=== PATIENT | male | born 1950 | race Caucasian/White ===

== ENCOUNTER 2019-09-20 17:48 | Observation (INO) ==
[2019-09-20] MEDS ORDERED: 0.9 % Sodium Chloride 1,000 ML IVC ONE (17:58)
[2019-09-20 18:26] LABS: Bilirubin,Urine Negative (Negative); Blood,Urine Negative (Negative); Clarity,Urine Cloudy (Clear); Color,Urine Yellow (Yellow); Glucose,Urine (UA) Normal (Normal); Ketones,Urine Negative (Negative); Leukocyte Esterase,Urine Negative (Negative); Nitrite,Urine Negative (Negative); Protein,Urine Negative (Neg-Trace); Specific Gravity,Urine 1.022 (1.010-1.025); Urobilinogen,Urine Normal (Normal)
[2019-09-20 18:29] LABS: Bacteria,Urine None Seen per hpf (None-Few); Hyaline Casts,Urine None Seen per lpf (None-Few); RBC,Urine 0-3 per hpf (0-3); Squamous Epithelial Cell,Urine Few per lpf (None-Few); WBC,Urine 0-3 per hpf (0-3)
[2019-09-20 18:35] LABS: INR 1.1; Prothrombin Time 12.8 Seconds (9.4-12.1)
[2019-09-20 18:35] LABS: Basophils % 0.2 %; Eosinophils % 0.1 %; Hematocrit 39.8 % (37.5-50.1); Hemoglobin 13.8 g/dL (12.9-16.9); Immature Granulocytes % 0.4 % (0-4); Lymphocytes # 1.3 K/mcL (0.6-4.6); Lymphocytes % 12.3 %; Mean Corpuscular HGB Conc 34.7 g/dL (31.6-35.5); Mean Corpuscular Hemoglobin 29.9 pg (28.0-33.3); Mean Corpuscular Volume 86.3 fL (83.0-100.0); Mean Platelet Volume 12.3 fL (9.4-12.4); Monocytes # 0.5 K/mcL (0.0-1.3); Monocytes % 4.4 %; Neutrophils # 8.4 K/mcL (1.6-8.9); Platelet Count 159 K/mcL (140-400); Red Blood Count 4.61 M/mcL (4.19-5.50); Segmented Neutrophils % 82.6 %; White Blood Count 10.2 K/mcL (4.3-11.1)
[2019-09-20 18:36] LABS: Amphetamine Screen,Urine Negative ng/mL (Cutoff=1000); Barbiturate Screen,Urine Negative ng/mL (Cutoff=200); Benzodiazepines Screen,Urine Negative ng/mL (Cutoff=200); Cannabinoid Screen,Urine Positive ng/mL (Cutoff = 50); Cocaine Screen,Urine Negative ng/mL (Cutoff= 300); Opiate Screen,Urine Negative ng/mL (Cutoff=300); Phencyclidine Screen,Urine Negative ng/mL (Cutoff=25)
[2019-09-20 18:37] LABS: Activated Partial Thrombo Time 30.2 Seconds (26.0-36.0)
[2019-09-20 18:47] LABS: Alanine Aminotransferase 27 Units/L (7-52); Albumin 3.9 g/dL (3.5-5.7); Albumin/Globulin Ratio 1.7 (1.1-2.2); Alkaline Phosphatase 49 Units/L (34-104); Aspartate Amino Transferase 32 Units/L (13-39); BUN/Creatinine Ratio 11 (6-26); Bilirubin,Direct 0.1 mg/dL (0.0-0.2); Bilirubin,Indirect 0.4 mg/dL (0.0-1.0); Bilirubin,Total 0.5 mg/dL (0.3-1.0); Blood Urea Nitrogen 11 mg/dL (8-23); Calcium 9.2 mg/dL (8.6-10.3); Carbon Dioxide 18 mEq/L (23-29); Chloride 111 mEq/L (98-107); Ethanol 23 mg/dL (Less than 10); Globulin 2.3 g/dL (2.4-3.5); Glucose 115 mg/dL (70-105); Osmolality,Calculated 288 (280-300); Potassium 3.5 mEq/L (3.5-5.1); Sodium 139 mEq/L (136-145); Total Protein 6.2 g/dL (6.4-8.9); Troponin I 0.04 ng/mL (< 0.04); eGFR For African Americans > 60 (> 60); eGFR For Non-African Americans > 60 (> 60)
[2019-09-20] MEDS ORDERED: Aspirin 81 MG TAB.CHEW PO ONE (18:54)
[2019-09-20 20:23] LABS: VBG HCO3 23 mEq/L (21-27); VBG PCO2 39 mmHg (41-51); VBG PH 7.38 pH Units (7.32-7.42); VBG PO2 42 mmHg (25-50)
[2019-09-20] MEDS ORDERED: Naloxone 0.4 MG/ML INJ IVP PRN (22:21)
[2019-09-21] MEDS ORDERED: *HR* LORazepam 2 MG/ML VIAL IVP PRN ×3 (01:58)
[2019-09-21] MEDS ORDERED: levETIRAcetam 1,000 MG in 0.9 % Sodium Chloride 100 ML IVPB ONE (01:59)
[2019-09-21 04:58] LABS: VBG HCO3 25 mEq/L (21-27); VBG PCO2 45 mmHg (41-51); VBG PH 7.35 pH Units (7.32-7.42); VBG PO2 45 mmHg (25-50)
[2019-09-21 05:00] LABS: Basophils % 0.3 %; Eosinophils % 0.1 %; Hematocrit 36.7 % (37.5-50.1); Hemoglobin 12.3 g/dL (12.9-16.9); INR 1.2; Immature Granulocytes % 0.3 % (0-4); Lymphocytes # 1.7 K/mcL (0.6-4.6); Lymphocytes % 24.1 %; Mean Corpuscular HGB Conc 33.5 g/dL (31.6-35.5); Mean Corpuscular Hemoglobin 29.7 pg (28.0-33.3); Mean Corpuscular Volume 88.6 fL (83.0-100.0); Monocytes # 0.7 K/mcL (0.0-1.3); Monocytes % 9.1 %; Neutrophils # 4.7 K/mcL (1.6-8.9); Platelet Count 127 K/mcL (140-400); Prothrombin Time 13.5 Seconds (9.4-12.1); Red Blood Count 4.14 M/mcL (4.19-5.50); Red Cell Distribution Width 13.1 % (11.5-14.5); Segmented Neutrophils % 66.1 %; White Blood Count 7.1 K/mcL (4.3-11.1)
[2019-09-21 05:20] LABS: Alanine Aminotransferase 24 Units/L (7-52); Albumin 3.4 g/dL (3.5-5.7); Albumin/Globulin Ratio 1.7 (1.1-2.2); Alkaline Phosphatase 42 Units/L (34-104); Aspartate Amino Transferase 28 Units/L (13-39); BUN/Creatinine Ratio 11 (6-26); Bilirubin,Total 0.7 mg/dL (0.3-1.0); Blood Urea Nitrogen 10 mg/dL (8-23); Calcium 8.7 mg/dL (8.6-10.3); Carbon Dioxide 23 mEq/L (23-29); Chloride 112 mEq/L (98-107); Chol/HDL Ratio 5.9 (0-4.9); Cholesterol 141 mg/dL (< 200); Glucose 89 mg/dL (70-105); HDL Cholesterol 24 mg/dL (40-59); LDL Cholesterol,Calculated 100 mg/dL (0-99); Magnesium 1.8 mg/dL (1.6-2.6); Osmolality,Calculated 291 (280-300); Phosphorous 2.4 mg/dL (2.7-4.5); Potassium 3.5 mEq/L (3.5-5.1); Sodium 141 mEq/L (136-145); Total Protein 5.4 g/dL (6.4-8.9); Triglycerides 87 mg/dL (< 150); eGFR For African Americans > 60 (> 60); eGFR For Non-African Americans > 60 (> 60)
[2019-09-21] MEDS ORDERED: levETIRAcetam 250 MG TABLET PO SCH (09:00)
[2019-09-21] MEDS ORDERED: Vitamin B Complex/Vit C/Vit E 1 EACH TABLET PO SCH (09:00)
[2019-09-21 10:58] VITALS: BP 123/71
[2019-09-21] MEDS ORDERED: Thiamine (B-1) 100 MG, Folic Acid 1 MG, MVI, adult with vitamin K 10 ML in 0.9 % Sodi... IVPB SCH (18:00)
[2019-09-24] MEDS ORDERED: Thiamine (B-1) 100 MG TABLET PO SCH (09:00)
[2019-09-24] MEDS ORDERED: Folic Acid 1 MG TABLET PO SCH (09:00)
== END 2019-09-21 14:59 | disposition left against medical advice (07) ==
LOC: EMEROOARM 17:48 → 3ANU 17:48 → SUATTDRO 21:16 → 3ANU 21:20
PROVIDERS: ADMIT Family Medicine; ATTEND Internal Medicine

== ENCOUNTER 2020-06-26 19:39 | Observation (INO) ==
[2020-06-26 19:58] LABS: Basophils % 0.3 %; Eosinophils % 0.4 %; Hematocrit 45.4 % (37.5-50.1); Hemoglobin 14.8 g/dL (12.9-16.9); Immature Granulocytes % 0.3 % (0-4); Lymphocytes # 1.8 K/mcL (0.6-4.6); Lymphocytes % 20.2 %; Mean Corpuscular HGB Conc 32.6 g/dL (31.6-35.5); Mean Corpuscular Hemoglobin 28.8 pg (28.0-33.3); Mean Corpuscular Volume 88.3 fL (83.0-100.0); Monocytes # 0.8 K/mcL (0.0-1.3); Monocytes % 8.5 %; Neutrophils # 6.2 K/mcL (1.6-8.9); Platelet Count 142 K/mcL (140-400); Red Blood Count 5.14 M/mcL (4.19-5.50); Red Cell Distribution Width 13.8 % (11.5-14.5); Segmented Neutrophils % 70.3 %; White Blood Count 8.9 K/mcL (4.3-11.1)
[2020-06-26] MEDS ORDERED: Nicotine 21 MG PATCH.TD24 TD ONE (20:15)
[2020-06-26 20:19] LABS: Acetaminophen < 10 mcg/mL (10-20); BUN/Creatinine Ratio 9 (6-26); Blood Urea Nitrogen 10 mg/dL (8-23); Calcium 9.4 mg/dL (8.6-10.3); Carbon Dioxide 23 mEq/L (23-29); Chloride 104 mEq/L (98-107); Chol/HDL Ratio 4.7 (0-4.9); Cholesterol 160 mg/dL (< 200); Ethanol < 10 mg/dL (Less than 10); Glucose 89 mg/dL (70-105); HDL Cholesterol 34 mg/dL (40-59); LDL Cholesterol,Calculated 108 mg/dL (< 100); Osmolality,Calculated 283 (280-300); Potassium 3.9 mEq/L (3.5-5.1); Salicylate < 2.5 mg/dL (15.0-30.0); Sodium 137 mEq/L (136-145); Triglycerides 88 mg/dL (< 150); eGFR For African Americans > 60 (> 60); eGFR For Non-African Americans > 60 (> 60)
[2020-06-26 20:40] LABS: INR 1.1; Prothrombin Time 12.9 Seconds (9.4-12.1)
[2020-06-26 21:43] LABS: Bacteria,Urine Few per hpf (None-Few); Bilirubin,Urine Small (Negative); Blood,Urine Negative (Negative); Clarity,Urine Clear (Clear); Color,Urine Yellow (Yellow); Glucose,Urine (UA) Normal (Normal); Hyaline Casts,Urine Many per lpf (None Seen); Ketones,Urine 10 mg/dL (Negative); Leukocyte Esterase,Urine Negative (Negative); Mucus,Urine Many per lpf (None-Few); Nitrite,Urine Negative (Negative); Protein,Urine 50 mg/dL (Neg-Trace); Specific Gravity,Urine > 1.030 (1.010-1.025); Squamous Epithelial Cell,Urine Few per hpf (None-Few)
[2020-06-26 21:52] LABS: Amphetamine Screen,Urine Negative ng/mL (Cutoff=1000); Barbiturate Screen,Urine Negative ng/mL (Cutoff=200); Benzodiazepines Screen,Urine Negative ng/mL (Cutoff=200); Cannabinoid Screen,Urine Positive ng/mL (Cutoff = 50); Cocaine Screen,Urine Negative ng/mL (Cutoff= 300); Opiate Screen,Urine Negative ng/mL (Cutoff=300); Phencyclidine Screen,Urine Negative ng/mL (Cutoff=25)
[2020-06-27] MEDS ORDERED: Acetaminophen 325 MG TABLET PO ONE (00:48)
[2020-06-27] MEDS ORDERED: Naloxone 0.4 MG/ML INJ IVP PRN (02:41)
[2020-06-27] MEDS ORDERED: Ibuprofen 400 MG TABLET PO PRN (02:43)
[2020-06-27] MEDS ORDERED: *HR* OxyCODONE Immed Rel 5 MG TABLET PO PRN (02:43)
[2020-06-27] MEDS ORDERED: *HR* HYDROcodone/Acet 5/325 mg TABLET PO PRN (02:43)
[2020-06-27] MEDS: *HR* Heparin 5,000 UNIT/ML VIAL SQ SCH ×2 (05:07→17:21)
[2020-06-27 06:54] LABS: BUN/Creatinine Ratio 11 (6-26); Blood Urea Nitrogen 10 mg/dL (8-23); Calcium 9.1 mg/dL (8.6-10.3); Carbon Dioxide 27 mEq/L (23-29); Chloride 106 mEq/L (98-107); Glucose 99 mg/dL (70-105); Magnesium 1.8 mg/dL (1.6-2.6); Osmolality,Calculated 285 (280-300); Phosphorous 2.6 mg/dL (2.7-4.5); Potassium 3.2 mEq/L (3.5-5.1); Sodium 138 mEq/L (136-145); eGFR For African Americans > 60 (> 60); eGFR For Non-African Americans > 60 (> 60)
[2020-06-27] MEDS ORDERED: levETIRAcetam 500 MG/5 ML VIAL IVPB SCH (09:00)
[2020-06-27 09:10] LABS: Estimated Average Glucose 120 mg/dl
[2020-06-27] MEDS: Aspirin Enteric Coated 81 MG Tablet PO SCH (09:47)
[2020-06-27] MEDS: levETIRAcetam 250 MG TABLET PO SCH ×2 (09:50→20:41)
[2020-06-27] MEDS: Gabapentin 100 MG CAPSULE PO SCH ×3 (12:28→20:41)
[2020-06-28 04:51] LABS: BUN/Creatinine Ratio 13 (6-26); Blood Urea Nitrogen 11 mg/dL (8-23); Calcium 8.5 mg/dL (8.6-10.3); Carbon Dioxide 25 mEq/L (23-29); Chloride 106 mEq/L (98-107); Glucose 98 mg/dL (70-105); Magnesium 1.6 mg/dL (1.6-2.6); Osmolality,Calculated 281 (280-300); Phosphorous 2.6 mg/dL (2.7-4.5); Potassium 4.1 mEq/L (3.5-5.1); Sodium 136 mEq/L (136-145); eGFR For African Americans > 60 (> 60); eGFR For Non-African Americans > 60 (> 60)
[2020-06-28] MEDS: *HR* Heparin 5,000 UNIT/ML VIAL SQ SCH (05:44)
[2020-06-28] MEDS: Aspirin Enteric Coated 81 MG Tablet PO SCH (08:33)
[2020-06-28] MEDS: levETIRAcetam 250 MG TABLET PO SCH (08:33)
[2020-06-28] MEDS: Gabapentin 100 MG CAPSULE PO SCH ×2 (08:33→14:18)
[2020-06-28 12:38] VITALS: BP 126/75
== END 2020-06-28 16:52 ==
LOC: EMEROOARM 19:39 → 3BNU 19:39 → SUATTDRO 06-27 01:35 → 3BNU 06-27 02:17
PROVIDERS: ADMIT Family Medicine; ATTEND Internal Medicine

== ENCOUNTER 2020-06-28 17:00 | Inpatient (IN) ==
[2020-06-28] MEDS ORDERED: hydrOXYzine pamoate 25 MG CAPSULE PO PRN (17:15)
[2020-06-28] MEDS ORDERED: *HR* LORazepam 2 MG/ML VIAL IM PRN (17:15)
[2020-06-28] MEDS ORDERED: *HR* LORazepam 1 MG TABLET PO PRN (17:15)
[2020-06-28] MEDS ORDERED: Mag Hydrox/Al Hydrox/Simeth 30 ML UDC PO PRN (17:15)
[2020-06-28] MEDS ORDERED: haloperidoL 5 MG TABLET PO PRN (17:15)
[2020-06-28] MEDS ORDERED: traZODone 50 MG TABLET PO PRN (17:15)
[2020-06-28] MEDS ORDERED: MOM Conc 10 ML UD.LIQ PO PRN (17:15)
[2020-06-28] MEDS ORDERED: Haloperidol Lactate 5 MG/ML VIAL IM PRN (17:15)
[2020-06-28] MEDS ORDERED: Ibuprofen 400 MG TABLET PO PRN (17:15)
[2020-06-28] MEDS: levETIRAcetam 250 MG TABLET PO SCH (21:09)
[2020-06-28] MEDS: Gabapentin 100 MG CAPSULE PO SCH (21:09)
[2020-06-29] MEDS ORDERED: Aspirin Enteric Coated 81 MG Tablet PO SCH (09:00)
[2020-06-29 10:02] VITALS: BP 123/80
[2020-06-29] MEDS: levETIRAcetam 250 MG TABLET PO SCH (11:42)
[2020-06-29] MEDS: Gabapentin 100 MG CAPSULE PO SCH (11:42)
== END 2020-06-29 14:55 | disposition home or self-care (01) | DRG 895 ==
LOC: 1ANU 17:00
PROVIDERS: ADMIT Psychiatry & Neurology Psychiatry; ATTEND Psychiatry & Neurology Psychiatry

== ENCOUNTER 2021-01-31 12:43 | Observation (INO) ==
[2021-01-31] MEDS ORDERED: *HR* LORazepam 2 MG/ML VIAL ONE (12:50)
[2021-01-31] MEDS ORDERED: *HR* LORazepam 2 MG/ML VIAL IVP ONE ×3 (12:50→15:16)
[2021-01-31 13:11] LABS: Hematocrit 50.9 % (37.5-50.1); Hemoglobin 15.7 g/dL (12.9-16.9); Lymphocytes # 5.7 K/mcL (0.6-4.6); Mean Corpuscular HGB Conc 30.8 g/dL (31.6-35.5); Mean Corpuscular Hemoglobin 28.9 pg (28.0-33.3); Mean Corpuscular Volume 93.7 fL (83.0-100.0); Mean Platelet Volume 12.5 fL (9.4-12.4); Platelet Count 167 K/mcL (140-400); Red Blood Count 5.43 M/mcL (4.19-5.50); Red Cell Distribution Width 13.8 % (11.5-14.5); White Blood Count 13.5 K/mcL (4.3-11.1)
[2021-01-31 13:42] LABS: Bilirubin,Urine Negative (Negative); Blood,Urine Trace (Negative); Clarity,Urine Clear (Clear); Color,Urine Light-Yellow (Yellow); Glucose,Urine (UA) Normal (Normal); Hyaline Casts,Urine Few per lpf (None Seen); Ketones,Urine 10 mg/dL (Negative); Leukocyte Esterase,Urine Negative (Negative); Mucus,Urine Few per lpf (None-Few); Nitrite,Urine Negative (Negative); PH,Urine 5.5 pH Units (5.0-8.0); Protein,Urine 50 mg/dL (Neg-Trace); RBC,Urine 0-3 per hpf (0-3); Specific Gravity,Urine 1.017 (1.010-1.025); Squamous Epithelial Cell,Urine Few per hpf (None-Few); Urobilinogen,Urine Normal (Normal); WBC,Urine 0-3 per hpf (0-3)
[2021-01-31 13:53] LABS: Alanine Aminotransferase 26 Units/L (7-52); Albumin 4.6 g/dL (3.5-5.7); Albumin/Globulin Ratio 1.6 (1.1-2.2); Alkaline Phosphatase 75 Units/L (34-104); Aspartate Amino Transferase 26 Units/L (13-39); BUN/Creatinine Ratio 7 (6-26); Bilirubin,Total 0.7 mg/dL (0.3-1.0); Blood Urea Nitrogen 8 mg/dL (8-23); Calcium 10.1 mg/dL (8.6-10.3); Carbon Dioxide 13 mEq/L (23-29); Chloride 104 mEq/L (98-107); Globulin 2.9 g/dL (2.4-3.5); Glucose 116 mg/dL (70-105); Osmolality,Calculated 293 (280-300); Potassium 3.8 mEq/L (3.5-5.1); Sodium 142 mEq/L (136-145); Total Protein 7.5 g/dL (6.4-8.9); eGFR For African Americans > 60 (> 60); eGFR For Non-African Americans > 60 (> 60)
[2021-01-31 14:26] LABS: Eosinophils # 0.3 K/mcL (0.0-0.6); Monocytes # 1.1 K/mcL (0.0-1.3); Neutrophils # 6.5 K/mcL (1.6-8.9); Reactive Lymphocytes Present (Not Present)
[2021-01-31 14:29] LABS: Platelet Estimate Normal (Normal); Toxic Granulation Present (Not Present)
[2021-01-31] MEDS: 0.9 % Sodium Chloride 1,000 ML IVC SCH ×2 (18:55→22:18)
[2021-01-31] MEDS: Piperacillin/Tazobactam 3.375 GM in 0.9 % Sodium Chloride Mini Bag 100 ML IVPB SCH (18:58)
[2021-01-31 19:00] LABS: VBG HCO3 23 mEq/L (21-27); VBG PCO2 35 mmHg (41-51); VBG PH 7.43 pH Units (7.32-7.42); VBG PO2 71 mmHg (25-50)
[2021-01-31] MEDS ORDERED: Vancomycin 1,500 MG/265 ML IV.SOLN IVPB SCH (19:00)
[2021-01-31 19:16] LABS: Ethanol < 10 mg/dL (Less than 10)
[2021-01-31] MEDS ORDERED: Naloxone 0.4 MG/ML INJ IVP PRN (19:51)
[2021-01-31] MEDS ORDERED: Ibuprofen 400 MG TABLET PO PRN (19:51)
[2021-01-31] MEDS ORDERED: levETIRAcetam 1,000 MG in 0.9 % Sodium Chloride 100 ML IVPB ONE (19:55)
[2021-01-31] MEDS ORDERED: *HR* Heparin 5,000 UNIT/ML VIAL SQ ONE (20:53)
[2021-01-31 20:57] LABS: Salicylate < 2.5 mg/dL (15.0-30.0)
[2021-02-01] MEDS: 0.9 % Sodium Chloride 1,000 ML IVC SCH (00:02)
[2021-02-01] MEDS: Piperacillin/Tazobactam 3.375 GM in 0.9 % Sodium Chloride Mini Bag 100 ML IVPB SCH (04:53)
[2021-02-01] MEDS ORDERED: *HR* Heparin 5,000 UNIT/ML VIAL SQ SCH (06:00)
[2021-02-01 06:24] LABS: Alanine Aminotransferase 18 Units/L (7-52); Albumin 3.4 g/dL (3.5-5.7); Albumin/Globulin Ratio 1.5 (1.1-2.2); Alkaline Phosphatase 56 Units/L (34-104); Aspartate Amino Transferase 21 Units/L (13-39); BUN/Creatinine Ratio 7 (6-26); Bilirubin,Total 0.7 mg/dL (0.3-1.0); Blood Urea Nitrogen 7 mg/dL (8-23); Calcium 8.6 mg/dL (8.6-10.3); Carbon Dioxide 23 mEq/L (23-29); Chloride 112 mEq/L (98-107); Globulin 2.3 g/dL (2.4-3.5); Glucose 81 mg/dL (70-105); Magnesium 1.8 mg/dL (1.6-2.6); Osmolality,Calculated 287 (280-300); Phosphorous 2.6 mg/dL (2.7-4.5); Potassium 4.2 mEq/L (3.5-5.1); Sodium 140 mEq/L (136-145); Total Protein 5.7 g/dL (6.4-8.9); eGFR For African Americans > 60 (> 60); eGFR For Non-African Americans > 60 (> 60)
[2021-02-01 06:41] VITALS: BP 118/70
[2021-02-01 07:36] LABS: Basophils % 0.5 %; Eosinophils # 0.1 K/mcL (0.0-0.6); Eosinophils % 0.9 %; Hematocrit 38.6 % (37.5-50.1); Hemoglobin 12.6 g/dL (12.9-16.9); Immature Granulocytes % 0.3 % (0-4); Lymphocytes % 24.2 %; Mean Corpuscular HGB Conc 32.6 g/dL (31.6-35.5); Mean Corpuscular Hemoglobin 29.1 pg (28.0-33.3); Mean Corpuscular Volume 89.1 fL (83.0-100.0); Mean Platelet Volume 12.5 fL (9.4-12.4); Monocytes # 0.4 K/mcL (0.0-1.3); Monocytes % 6.8 %; Neutrophils # 4.3 K/mcL (1.6-8.9); Platelet Count 124 K/mcL (140-400); Red Blood Count 4.33 M/mcL (4.19-5.50); Red Cell Distribution Width 13.5 % (11.5-14.5); Segmented Neutrophils % 67.3 %; White Blood Count 6.4 K/mcL (4.3-11.1)
[2021-02-01 07:41] LABS: Lymphocytes # 1.6 K/mcL (0.6-4.6)
[2021-02-01] MEDS ORDERED: Nicotine 21 MG PATCH.TD24 TD SCH (09:00)
== END 2021-02-01 10:03 | disposition home or self-care (01) ==
LOC: EMEROOARM 12:43 → 3ANU 12:43 → SUATTDRO 16:51 → 3ANU 17:14
PROVIDERS: ADMIT Family Medicine; ATTEND Internal Medicine

== ENCOUNTER 2021-10-07 18:43 | Observation (INO) ==
[2021-10-07] MEDS ORDERED: Nitroglycerin 0.4 MG TAB.SUBL SL PRN ×2 (19:59→23:07)
[2021-10-07] MEDS ORDERED: Aspirin 81 MG TAB.CHEW PO ONE (19:59)
[2021-10-07] MEDS ORDERED: Morphine Sulfate 2 MG/ML SYRINGE IVP ONE (19:59)
[2021-10-07] MEDS ORDERED: Ondansetron 4 MG/2 ML VIAL IVP ONE (19:59)
[2021-10-07 20:17] LABS: Basophils % 0.3 %; Eosinophils % 0.1 %; Hematocrit 44.1 % (37.5-50.1); Hemoglobin 14.4 g/dL (12.9-16.9); Immature Granulocytes % 0.5 % (0-4); Lymphocytes # 1.7 K/mcL (0.6-4.6); Lymphocytes % 18.6 %; Mean Corpuscular HGB Conc 32.7 g/dL (31.6-35.5); Mean Corpuscular Hemoglobin 28.6 pg (28.0-33.3); Mean Corpuscular Volume 87.5 fL (83.0-100.0); Mean Platelet Volume 11.6 fL (9.4-12.4); Monocytes # 0.5 K/mcL (0.0-1.3); Neutrophils # 6.6 K/mcL (1.6-8.9); Platelet Count 197 K/mcL (140-400); Red Blood Count 5.04 M/mcL (4.19-5.50); Red Cell Distribution Width 14.1 % (11.5-14.5); Segmented Neutrophils % 74.5 %; White Blood Count 8.9 K/mcL (4.3-11.1)
[2021-10-07 20:24] LABS: BUN/Creatinine Ratio 29 (6-26); Blood Urea Nitrogen 30 mg/dL (8-23); Calcium 9.9 mg/dL (8.6-10.3); Carbon Dioxide 23 mEq/L (23-29); Chloride 103 mEq/L (98-107); Glucose 128 mg/dL (70-105); INR 1.1; Osmolality,Calculated 296 (280-300); Potassium 4.3 mEq/L (3.5-5.1); Prothrombin Time 12.4 Seconds (9.4-12.1); Sodium 139 mEq/L (136-145); eGFR For African Americans > 60 (> 60); eGFR For Non-African Americans > 60 (> 60)
[2021-10-07 20:26] LABS: Troponin I < 0.03 ng/mL (< 0.04)
[2021-10-07 20:27] LABS: Activated Partial Thrombo Time 33.7 Seconds (26.0-36.0)
[2021-10-07] MEDS ORDERED: 0.9 % Sodium Chloride 1,000 ML IV ONE (21:25)
[2021-10-07 21:40] LABS: Ethanol < 10 mg/dL (Less than 10)
[2021-10-07 22:20] LABS: Amphetamine Screen,Urine Negative ng/mL (Cutoff=1000); Barbiturate Screen,Urine Negative ng/mL (Cutoff=200); Benzodiazepines Screen,Urine Negative ng/mL (Cutoff=200); Cannabinoid Screen,Urine Negative ng/mL (Cutoff = 50); Cocaine Screen,Urine Negative ng/mL (Cutoff= 300); Opiate Screen,Urine Negative ng/mL (Cutoff=300); Phencyclidine Screen,Urine Negative ng/mL (Cutoff=25)
[2021-10-07] MEDS ORDERED: Acetaminophen 325 MG TABLET PO PRN (23:07)
[2021-10-07] MEDS ORDERED: Ondansetron 4 MG/2 ML VIAL IVP PRN (23:07)
[2021-10-07] MEDS ORDERED: Naloxone 0.4 MG/ML INJ IVP PRN (23:07)
[2021-10-07] MEDS ORDERED: 0.9 % Sodium Chloride 1,000 ML IVC SCH (23:15)
[2021-10-08] MEDS ORDERED: Perflutren Lipid Microsphere 1.3 ML in 0.9 % Sodium Chloride 8.7 ML IVP PRN (02:54)
[2021-10-08] MEDS ORDERED: Isovue-370 500 ML BOTTLE IVP ONE (03:06)
[2021-10-08 03:36] LABS: Hematocrit 37.3 % (37.5-50.1); Mean Corpuscular HGB Conc 33.8 g/dL (31.6-35.5); Mean Corpuscular Hemoglobin 29.5 pg (28.0-33.3); Mean Corpuscular Volume 87.4 fL (83.0-100.0); Mean Platelet Volume 11.6 fL (9.4-12.4); Platelet Count 177 K/mcL (140-400); Red Blood Count 4.27 M/mcL (4.19-5.50); Red Cell Distribution Width 14.2 % (11.5-14.5); White Blood Count 6.8 K/mcL (4.3-11.1)
[2021-10-08 03:39] LABS: Hemoglobin 12.6 g/dL (12.9-16.9)
[2021-10-08 03:52] LABS: BUN/Creatinine Ratio 29 (6-26); Blood Urea Nitrogen 25 mg/dL (8-23); Calcium 8.8 mg/dL (8.6-10.3); Carbon Dioxide 23 mEq/L (23-29); Chloride 107 mEq/L (98-107); Glucose 76 mg/dL (70-105); Osmolality,Calculated 291 (280-300); Potassium 4.5 mEq/L (3.5-5.1); Sodium 139 mEq/L (136-145); eGFR For African Americans > 60 (> 60); eGFR For Non-African Americans > 60 (> 60)
[2021-10-08 03:54] LABS: Troponin I < 0.03 ng/mL (< 0.04)
[2021-10-08] MEDS: Metoprolol XL (24 HR) Succ 25 MG TAB.ER.24H PO SCH (12:43)
[2021-10-08] MEDS: Nicotine 21 MG PATCH.TD24 TD SCH (12:43)
[2021-10-08] MEDS: levETIRAcetam 250 MG TABLET PO SCH ×2 (14:31→14:34)
[2021-10-09] MEDS: levETIRAcetam 250 MG TABLET PO SCH (05:16)
[2021-10-09 07:08] LABS: Basophils % 0.6 %; Eosinophils # 0.1 K/mcL (0.0-0.6); Eosinophils % 1.4 %; Hemoglobin 12.6 g/dL (12.9-16.9); Immature Granulocytes % 0.2 % (0-4); Lymphocytes % 30.9 %; Mean Corpuscular HGB Conc 32.3 g/dL (31.6-35.5); Mean Corpuscular Hemoglobin 28.6 pg (28.0-33.3); Mean Corpuscular Volume 88.4 fL (83.0-100.0); Mean Platelet Volume 11.7 fL (9.4-12.4); Monocytes # 0.6 K/mcL (0.0-1.3); Monocytes % 8.9 %; Neutrophils # 3.7 K/mcL (1.6-8.9); Platelet Count 168 K/mcL (140-400); Red Blood Count 4.41 M/mcL (4.19-5.50); Red Cell Distribution Width 14.2 % (11.5-14.5); White Blood Count 6.4 K/mcL (4.3-11.1)
[2021-10-09 07:27] LABS: BUN/Creatinine Ratio 23 (6-26); Blood Urea Nitrogen 19 mg/dL (8-23); Calcium 9.2 mg/dL (8.6-10.3); Carbon Dioxide 25 mEq/L (23-29); Chloride 107 mEq/L (98-107); Glucose 82 mg/dL (70-105); Magnesium 1.6 mg/dL (1.6-2.6); Osmolality,Calculated 287 (280-300); Phosphorous 3.5 mg/dL (2.7-4.5); Potassium 4.3 mEq/L (3.5-5.1); Sodium 138 mEq/L (136-145); eGFR For African Americans > 60 (> 60); eGFR For Non-African Americans > 60 (> 60)
[2021-10-09] MEDS: Nicotine 21 MG PATCH.TD24 TD SCH (09:06)
[2021-10-09] MEDS: Metoprolol XL (24 HR) Succ 25 MG TAB.ER.24H PO SCH (09:06)
[2021-10-09 10:44] VITALS: BP 110/69; PULSE 63; TEMP 97.6; O2SAT 97
== END 2021-10-09 12:07 | disposition home or self-care (01) ==
LOC: 3BNU 18:43 → EMEROOARM 18:43 → SUATTDRO 23:03 → 3BNU 23:18
PROVIDERS: ADMIT Internal Medicine; ATTEND Internal Medicine

== ENCOUNTER 2021-11-05 18:06 | Observation (INO) ==
[2021-11-05] MEDS ORDERED: levETIRAcetam 250 MG TABLET PO STA (18:54)
[2021-11-05 19:03] LABS: Basophils % 0.3 %; Eosinophils % 0.3 %; Hematocrit 42.3 % (37.5-50.1); Hemoglobin 13.3 g/dL (12.9-16.9); Immature Granulocytes % 0.5 % (0-4); Lymphocytes # 1.4 K/mcL (0.6-4.6); Lymphocytes % 19.1 %; Mean Corpuscular HGB Conc 31.4 g/dL (31.6-35.5); Mean Corpuscular Hemoglobin 28.3 pg (28.0-33.3); Mean Platelet Volume 11.5 fL (9.4-12.4); Monocytes # 0.4 K/mcL (0.0-1.3); Monocytes % 5.8 %; Neutrophils # 5.6 K/mcL (1.6-8.9); Platelet Count 188 K/mcL (140-400); Red Cell Distribution Width 13.7 % (11.5-14.5); White Blood Count 7.6 K/mcL (4.3-11.1)
[2021-11-05 19:26] LABS: Acetaminophen < 10 mcg/mL (10-20); Alanine Aminotransferase 68 Units/L (7-52); Albumin/Globulin Ratio 1.4 (1.1-2.2); Alkaline Phosphatase 65 Units/L (34-104); Aspartate Amino Transferase 55 Units/L (13-39); BUN/Creatinine Ratio 14 (6-26); Bilirubin,Direct 0.1 mg/dL (0.0-0.2); Bilirubin,Indirect 0.3 mg/dL (0.0-1.0); Bilirubin,Total 0.4 mg/dL (0.3-1.0); Blood Urea Nitrogen 12 mg/dL (8-23); Calcium 9.4 mg/dL (8.6-10.3); Carbon Dioxide 24 mEq/L (23-29); Chloride 101 mEq/L (98-107); Ethanol < 10 mg/dL (Less than 10); Globulin 2.9 g/dL (2.4-3.5); Glucose 90 mg/dL (70-105); Osmolality,Calculated 283 (280-300); Potassium 3.4 mEq/L (3.5-5.1); Salicylate < 2.5 mg/dL (15.0-30.0); Sodium 137 mEq/L (136-145); Total Protein 6.9 g/dL (6.4-8.9); Troponin I < 0.03 ng/mL (< 0.04); eGFR For African Americans > 60 (> 60); eGFR For Non-African Americans > 60 (> 60)
[2021-11-05 19:28] LABS: INR 1.1; Prothrombin Time 11.8 Seconds (9.4-12.1)
[2021-11-05 19:30] LABS: Activated Partial Thrombo Time 31.5 Seconds (26.0-36.0)
[2021-11-05 19:57] LABS: Amphetamine Screen,Urine Negative ng/mL (Cutoff=1000); Barbiturate Screen,Urine Negative ng/mL (Cutoff=200); Benzodiazepines Screen,Urine Negative ng/mL (Cutoff=200); Cannabinoid Screen,Urine Positive ng/mL (Cutoff = 50); Cocaine Screen,Urine Negative ng/mL (Cutoff= 300); Opiate Screen,Urine Negative ng/mL (Cutoff=300); Phencyclidine Screen,Urine Negative ng/mL (Cutoff=25)
[2021-11-06] MEDS ORDERED: Ondansetron 4 MG/2 ML VIAL IVP PRN (00:43)
[2021-11-06] MEDS ORDERED: Acetaminophen 325 MG TABLET PO PRN (00:43)
[2021-11-06] MEDS ORDERED: Naloxone 0.4 MG/ML INJ IVP PRN (00:43)
[2021-11-06 00:56] LABS: Influenza A PCR Negative (Negative); Influenza B PCR Negative (Negative); Resp. Syncytial Virus PCR Negative (Negative)
[2021-11-06 00:57] LABS: SARS-CoV-2 by PCR (In House) Negative (Negative)
[2021-11-06] MEDS ORDERED: Ipratropium/Albuterol Neb 3 ML IH PRN (02:52)
[2021-11-06 05:33] LABS: Basophils % 0.7 %; Eosinophils # 0.1 K/mcL (0.0-0.6); Eosinophils % 2.2 %; Hematocrit 37.2 % (37.5-50.1); Immature Granulocytes % 0.4 % (0-4); Lymphocytes % 45.1 %; Mean Corpuscular HGB Conc 32.3 g/dL (31.6-35.5); Mean Corpuscular Hemoglobin 28.5 pg (28.0-33.3); Mean Corpuscular Volume 88.4 fL (83.0-100.0); Mean Platelet Volume 11.7 fL (9.4-12.4); Monocytes # 0.4 K/mcL (0.0-1.3); Monocytes % 9.1 %; Neutrophils # 1.9 K/mcL (1.6-8.9); Platelet Count 153 K/mcL (140-400); Red Blood Count 4.21 M/mcL (4.19-5.50); Red Cell Distribution Width 13.8 % (11.5-14.5); Segmented Neutrophils % 42.5 %; White Blood Count 4.5 K/mcL (4.3-11.1)
[2021-11-06 05:50] LABS: Chol/HDL Ratio 2.9 (0-4.9)
[2021-11-06 06:07] LABS: Alanine Aminotransferase 49 Units/L (7-52); Albumin 3.1 g/dL (3.5-5.7); Albumin/Globulin Ratio 1.3 (1.1-2.2); Alkaline Phosphatase 51 Units/L (34-104); Aspartate Amino Transferase 40 Units/L (13-39); BUN/Creatinine Ratio 14 (6-26); Bilirubin,Direct 0.1 mg/dL (0.0-0.2); Bilirubin,Indirect 0.3 mg/dL (0.0-1.0); Bilirubin,Total 0.4 mg/dL (0.3-1.0); Blood Urea Nitrogen 11 mg/dL (8-23); Carbon Dioxide 26 mEq/L (23-29); Chloride 107 mEq/L (98-107); Globulin 2.3 g/dL (2.4-3.5); Glucose 93 mg/dL (70-105); Magnesium 1.7 mg/dL (1.6-2.6); Osmolality,Calculated 285 (280-300); Potassium 4.3 mEq/L (3.5-5.1); Sodium 138 mEq/L (136-145); Total Protein 5.4 g/dL (6.4-8.9); Troponin I < 0.03 ng/mL (< 0.04); eGFR For African Americans > 60 (> 60); eGFR For Non-African Americans > 60 (> 60)
[2021-11-06] MEDS: *HR* Enoxaparin 40 MG/0.4 ML SYRINGE SQ SCH (07:43)
[2021-11-06] MEDS: Isosorbide MONOnitrate (24 HR) 30 MG TAB.ER.24H PO SCH (11:51)
[2021-11-06] MEDS ORDERED: Albumin 25% 25gram/100mL 25 GM/100 ML IV.SOLN IVPB ONE (20:27)
[2021-11-06] MEDS: levETIRAcetam 250 MG TABLET PO SCH (23:34)
[2021-11-07 01:35] LABS: Hematocrit 35.2 % (37.5-50.1); Hemoglobin 11.4 g/dL (12.9-16.9); Mean Corpuscular HGB Conc 32.4 g/dL (31.6-35.5); Mean Corpuscular Hemoglobin 28.9 pg (28.0-33.3); Mean Corpuscular Volume 89.1 fL (83.0-100.0); Mean Platelet Volume 11.8 fL (9.4-12.4); Platelet Count 152 K/mcL (140-400); Red Blood Count 3.95 M/mcL (4.19-5.50); Red Cell Distribution Width 13.7 % (11.5-14.5); White Blood Count 5.2 K/mcL (4.3-11.1)
[2021-11-07 01:56] LABS: BUN/Creatinine Ratio 15 (6-26); Blood Urea Nitrogen 13 mg/dL (8-23); Calcium 8.9 mg/dL (8.6-10.3); Carbon Dioxide 22 mEq/L (23-29); Chloride 105 mEq/L (98-107); Glucose 77 mg/dL (70-105); Osmolality,Calculated 279 (280-300); Potassium 4.5 mEq/L (3.5-5.1); Sodium 135 mEq/L (136-145); eGFR For African Americans > 60 (> 60); eGFR For Non-African Americans > 60 (> 60)
[2021-11-07 06:48] VITALS: TEMP 97.4
[2021-11-07] MEDS: Isosorbide MONOnitrate (24 HR) 30 MG TAB.ER.24H PO SCH (08:32)
[2021-11-07] MEDS: levETIRAcetam 250 MG TABLET PO SCH (08:32)
[2021-11-07] MEDS: *HR* Enoxaparin 40 MG/0.4 ML SYRINGE SQ SCH (08:32)
[2021-11-07] MEDS ORDERED: Aspirin Enteric Coated 81 MG Tablet PO SCH (09:00)
[2021-11-07 10:42] VITALS: BP 143/79; PULSE 59; O2SAT 98
== END 2021-11-07 12:17 | disposition home or self-care (01) ==
LOC: EMEROOARM 18:06 → 3BNU 18:06
PROVIDERS: ADMIT Internal Medicine; ATTEND Internal Medicine

== ENCOUNTER 2021-11-08 18:48 | Observation (INO) ==
[2021-11-08] MEDS ORDERED: 0.9 % Sodium Chloride 500 ML IVC ONE (19:50)
[2021-11-08] MEDS ORDERED: Aspirin 81 MG TAB.CHEW PO ONE (19:50)
[2021-11-08 20:24] LABS: Basophils % 0.5 %; Eosinophils # 0.1 K/mcL (0.0-0.6); Eosinophils % 1.8 %; Hematocrit 37.7 % (37.5-50.1); Hemoglobin 12.2 g/dL (12.9-16.9); Immature Granulocytes % 0.4 % (0-4); Lymphocytes # 1.8 K/mcL (0.6-4.6); Lymphocytes % 33.3 %; Mean Corpuscular HGB Conc 32.4 g/dL (31.6-35.5); Mean Corpuscular Hemoglobin 28.7 pg (28.0-33.3); Mean Corpuscular Volume 88.7 fL (83.0-100.0); Mean Platelet Volume 11.1 fL (9.4-12.4); Monocytes # 0.4 K/mcL (0.0-1.3); Monocytes % 7.9 %; Neutrophils # 3.1 K/mcL (1.6-8.9); Platelet Count 162 K/mcL (140-400); Red Blood Count 4.25 M/mcL (4.19-5.50); Red Cell Distribution Width 13.7 % (11.5-14.5); Segmented Neutrophils % 56.1 %; White Blood Count 5.5 K/mcL (4.3-11.1)
[2021-11-08 20:31] LABS: INR 1.1; Prothrombin Time 12.3 Seconds (9.4-12.1)
[2021-11-08 20:34] LABS: Activated Partial Thrombo Time 32.7 Seconds (26.0-36.0)
[2021-11-08 20:50] LABS: Acetaminophen < 10 mcg/mL (10-20); Alanine Aminotransferase 57 Units/L (7-52); Albumin 3.7 g/dL (3.5-5.7); Albumin/Globulin Ratio 1.5 (1.1-2.2); Alkaline Phosphatase 54 Units/L (34-104); Aspartate Amino Transferase 51 Units/L (13-39); BUN/Creatinine Ratio 16 (6-26); Bilirubin,Direct 0.1 mg/dL (0.0-0.2); Bilirubin,Indirect 0.3 mg/dL (0.0-1.0); Bilirubin,Total 0.4 mg/dL (0.3-1.0); Blood Urea Nitrogen 12 mg/dL (8-23); Calcium 9.3 mg/dL (8.6-10.3); Carbon Dioxide 27 mEq/L (23-29); Chloride 105 mEq/L (98-107); Ethanol < 10 mg/dL (Less than 10); Globulin 2.4 g/dL (2.4-3.5); Glucose 74 mg/dL (70-105); Lipase 30 Units/L (11-82); Osmolality,Calculated 284 (280-300); Potassium 4.2 mEq/L (3.5-5.1); Salicylate < 2.5 mg/dL (15.0-30.0); Sodium 138 mEq/L (136-145); Total Protein 6.1 g/dL (6.4-8.9); Troponin I < 0.03 ng/mL (< 0.04); eGFR For African Americans > 60 (> 60); eGFR For Non-African Americans > 60 (> 60)
[2021-11-08 20:51] LABS: Amphetamine Screen,Urine Negative ng/mL (Cutoff=1000); Barbiturate Screen,Urine Negative ng/mL (Cutoff=200); Benzodiazepines Screen,Urine Negative ng/mL (Cutoff=200); Cannabinoid Screen,Urine Positive ng/mL (Cutoff = 50); Cocaine Screen,Urine Negative ng/mL (Cutoff= 300); Opiate Screen,Urine Negative ng/mL (Cutoff=300); Phencyclidine Screen,Urine Negative ng/mL (Cutoff=25)
[2021-11-09] MEDS ORDERED: Ondansetron 4 MG/2 ML VIAL IVP PRN (00:46)
[2021-11-09] MEDS ORDERED: *HR* HYDROcodone/Acet 5/325 mg TABLET PO PRN (00:46)
[2021-11-09] MEDS ORDERED: Melatonin 3 MG TABLET PO PRN (00:46)
[2021-11-09] MEDS ORDERED: Naloxone 0.4 MG/ML INJ IVP PRN (00:46)
[2021-11-09] MEDS ORDERED: Acetaminophen 325 MG TABLET PO PRN (00:46)
[2021-11-09 02:40] LABS: Basophils % 0.7 %; Eosinophils # 0.1 K/mcL (0.0-0.6); Eosinophils % 3.2 %; Hematocrit 36.2 % (37.5-50.1); Hemoglobin 11.9 g/dL (12.9-16.9); Immature Granulocytes % 0.2 % (0-4); Lymphocytes # 1.6 K/mcL (0.6-4.6); Lymphocytes % 39.6 %; Mean Corpuscular HGB Conc 32.9 g/dL (31.6-35.5); Mean Corpuscular Hemoglobin 29.3 pg (28.0-33.3); Mean Corpuscular Volume 89.2 fL (83.0-100.0); Mean Platelet Volume 11.5 fL (9.4-12.4); Monocytes # 0.5 K/mcL (0.0-1.3); Monocytes % 11.7 %; Neutrophils # 1.8 K/mcL (1.6-8.9); Platelet Count 152 K/mcL (140-400); Red Blood Count 4.06 M/mcL (4.19-5.50); Red Cell Distribution Width 13.7 % (11.5-14.5); Segmented Neutrophils % 44.6 %; White Blood Count 4.1 K/mcL (4.3-11.1)
[2021-11-09 03:04] LABS: BUN/Creatinine Ratio 16 (6-26); Blood Urea Nitrogen 13 mg/dL (8-23); Carbon Dioxide 22 mEq/L (23-29); Chloride 109 mEq/L (98-107); Potassium 3.6 mEq/L (3.5-5.1); Sodium 139 mEq/L (136-145)
[2021-11-09 03:05] LABS: Glucose 156 mg/dL (70-105); Osmolality,Calculated 291 (280-300); Troponin I < 0.03 ng/mL (< 0.04); eGFR For African Americans > 60 (> 60); eGFR For Non-African Americans > 60 (> 60)
[2021-11-09 05:55] VITALS: BP 107/67; PULSE 65; TEMP 97.6; O2SAT 98
== END 2021-11-09 15:57 | disposition home or self-care (01) ==
LOC: EMEROOARM 18:48 → 3BNU 18:48 → SUATTDRO 11-09 00:44 → 3BNU 11-09 01:20
PROVIDERS: ADMIT Internal Medicine; ATTEND Internal Medicine